=== PATIENT | female | born 1955 | race Caucasian/White ===

== ENCOUNTER 2019-11-17 15:24 | Inpatient (IN) ==
[2019-11-17] MEDS ORDERED: Isovue-370 500 ML BOTTLE IVP ONE (15:45)
[2019-11-17] MEDS ORDERED: methylPREDNISolone 125 MG/2 ML VIAL IVP ONE (15:45)
[2019-11-17] MEDS ORDERED: Ipratropium/Albuterol Neb 3 ML IH ONE (15:45)
[2019-11-17 16:23] LABS: Basophils % 0.5 %; Eosinophils # 0.1 K/mcL (0.0-0.6); Eosinophils % 1.3 %; Hematocrit 41.6 % (35.3-44.9); Hemoglobin 12.5 g/dL (11.5-15.4); Immature Granulocytes % 0.4 % (0-4); Lymphocytes % 11.7 %; Mean Corpuscular Hemoglobin 28.3 pg (28.0-33.3); Mean Corpuscular Volume 94.1 fL (83.0-100.0); Mean Platelet Volume 10.7 fL (9.4-12.4); Monocytes # 0.7 K/mcL (0.0-1.3); Neutrophils # 6.6 K/mcL (1.6-8.9); Platelet Count 183 K/mcL (140-400); Red Blood Count 4.42 M/mcL (3.82-4.97); Red Cell Distribution Width 14.8 % (11.5-14.5); Segmented Neutrophils % 78.1 %; White Blood Count 8.5 K/mcL (4.3-11.1)
[2019-11-17 16:46] LABS: BUN/Creatinine Ratio 19 (6-26); Blood Urea Nitrogen 11 mg/dL (8-23); Carbon Dioxide 40 mEq/L (23-29); Chloride 95 mEq/L (98-107); Glucose 113 mg/dL (70-105); Osmolality,Calculated 296 (280-300); Potassium 4.1 mEq/L (3.5-5.1); Sodium 143 mEq/L (136-145); Troponin I < 0.03 ng/mL (< 0.04); eGFR For African Americans > 60 (> 60); eGFR For Non-African Americans > 60 (> 60)
[2019-11-17 17:26] LABS: VBG HCO3 39 mEq/L (21-27); VBG PCO2 60 mmHg (41-51); VBG PH 7.43 pH Units (7.32-7.42); VBG PO2 204 mmHg (25-50)
[2019-11-17] MEDS ORDERED: Perflutren Lipid Microsphere 1.3 ML in 0.9 % Sodium Chloride 8.7 ML IVP ONE (18:58)
[2019-11-17] MEDS ORDERED: Azithromycin 500 MG in 0.9 % Sodium Chloride 250 ML IVPB SCH (19:00)
[2019-11-17] MEDS: levoFLOXacin 750 MG/150 ML 750 MG/150 ML BAG IVPB SCH (19:38)
[2019-11-17] MEDS: Ipratropium/Albuterol Neb 3 ML IH SCH ×2 (20:33→23:40)
[2019-11-17 21:30] LABS: Adenovirus Not Detected (Not Detect); Bordetella Pertussis Not Detected (Not Detect); Chlamydophila pneumoniae Not Detected (Not Detect); Coronavirus 229E Not Detected (Not Detect); Coronavirus HKU1 Not Detected (Not Detect); Coronavirus NL63 Not Detected (Not Detect); Coronavirus OC43 Not Detected (Not Detect); Human Metapneumovirus Not Detected (Not Detect); Human Rhinovirus/Enterovirus Not Detected (Not Detect); Influenza A Subtype 2009 H1 Not Detected (Not Detect); Influenza B Not Detected (Not Detect); Mycoplasma pneumoniae Not Detected (Not Detect); Parainfluenza Virus 1 Not Detected (Not Detect); Parainfluenza Virus 2 Not Detected (Not Detect); Parainfluenza Virus 3 Not Detected (Not Detect); Parainfluenza Virus 4 Not Detected (Not Detect); Respiratory Syncytial Virus Not Detected (Not Detect)
[2019-11-18] MEDS ORDERED: methylPREDNISolone 125 MG/2 ML VIAL IM SCH
[2019-11-18] MEDS: methylPREDNISolone 125 MG/2 ML VIAL IVP SCH ×5 (00:27→23:57)
[2019-11-18] MEDS ORDERED: Melatonin 3 MG TABLET PO ONE (00:33)
[2019-11-18] MEDS: Ipratropium/Albuterol Neb 3 ML IH SCH ×5 (04:04→20:20)
[2019-11-18 08:08] LABS: Hematocrit 38.3 % (35.3-44.9); Hemoglobin 11.9 g/dL (11.5-15.4); Mean Corpuscular HGB Conc 31.1 g/dL (31.6-35.5); Mean Corpuscular Hemoglobin 28.5 pg (28.0-33.3); Mean Corpuscular Volume 91.8 fL (83.0-100.0); Mean Platelet Volume 10.9 fL (9.4-12.4); Platelet Count 154 K/mcL (140-400); Red Blood Count 4.17 M/mcL (3.82-4.97); White Blood Count 8.2 K/mcL (4.3-11.1)
[2019-11-18 08:17] LABS: VBG HCO3 40 mEq/L (21-27); VBG PCO2 71 mmHg (41-51); VBG PH 7.36 pH Units (7.32-7.42); VBG PO2 155 mmHg (25-50)
[2019-11-18 08:35] LABS: BUN/Creatinine Ratio 23 (6-26); Blood Urea Nitrogen 15 mg/dL (8-23); Calcium 10.1 mg/dL (8.6-10.3); Carbon Dioxide 40 mEq/L (23-29); Chloride 94 mEq/L (98-107); Glucose 208 mg/dL (70-105); Osmolality,Calculated 299 (280-300); Sodium 141 mEq/L (136-145); eGFR For African Americans > 60 (> 60); eGFR For Non-African Americans > 60 (> 60)
[2019-11-18] MEDS: levoFLOXacin 750 MG/150 ML 750 MG/150 ML BAG IVPB SCH (08:45)
[2019-11-18] MEDS: Loratadine 10 MG TABLET PO SCH (08:45)
[2019-11-18] MEDS: Furosemide 20 MG TABLET PO SCH (08:45)
[2019-11-18] MEDS: *HR* Heparin 5,000 UNIT/ML VIAL SQ SCH (17:02)
[2019-11-18] MEDS: Menthol 9.1 MG LOZENGE PO PRN (21:45)
[2019-11-19] MEDS: Ipratropium/Albuterol Neb 3 ML IH SCH ×7 (00:13→23:46)
[2019-11-19 04:04] LABS: Hematocrit 39.2 % (35.3-44.9); Mean Corpuscular HGB Conc 30.6 g/dL (31.6-35.5); Mean Corpuscular Hemoglobin 28.2 pg (28.0-33.3); Mean Corpuscular Volume 92.2 fL (83.0-100.0); Mean Platelet Volume 11.2 fL (9.4-12.4); Platelet Count 186 K/mcL (140-400); Red Blood Count 4.25 M/mcL (3.82-4.97); Red Cell Distribution Width 15.5 % (11.5-14.5); White Blood Count 12.9 K/mcL (4.3-11.1)
[2019-11-19 04:05] LABS: VBG HCO3 38 mEq/L (21-27); VBG PCO2 57 mmHg (41-51); VBG PH 7.44 pH Units (7.32-7.42); VBG PO2 135 mmHg (25-50)
[2019-11-19 04:28] LABS: BUN/Creatinine Ratio 31 (6-26); Blood Urea Nitrogen 23 mg/dL (8-23); Carbon Dioxide 40 mEq/L (23-29); Chloride 96 mEq/L (98-107); Glucose 225 mg/dL (70-105); Osmolality,Calculated 305 (280-300); Potassium 4.2 mEq/L (3.5-5.1); Sodium 142 mEq/L (136-145); eGFR For African Americans > 60 (> 60); eGFR For Non-African Americans > 60 (> 60)
[2019-11-19] MEDS: *HR* Heparin 5,000 UNIT/ML VIAL SQ SCH ×2 (06:05→17:26)
[2019-11-19] MEDS: methylPREDNISolone 125 MG/2 ML VIAL IVP SCH ×4 (06:06→23:39)
[2019-11-19] MEDS: levoFLOXacin 750 MG/150 ML 750 MG/150 ML BAG IVPB SCH (07:46)
[2019-11-19] MEDS: Loratadine 10 MG TABLET PO SCH (07:46)
[2019-11-19] MEDS: Furosemide 20 MG TABLET PO SCH (07:46)
[2019-11-19] MEDS: Budesonide/Formoterol 160/4.5 1 PUFF INH IH SCH ×2 (11:28→19:48)
[2019-11-19] MEDS: Menthol 9.1 MG LOZENGE PO PRN (21:37)
[2019-11-20 02:02] LABS: Hematocrit 39.1 % (35.3-44.9); Hemoglobin 12.1 g/dL (11.5-15.4); Mean Corpuscular HGB Conc 30.9 g/dL (31.6-35.5); Mean Corpuscular Hemoglobin 28.5 pg (28.0-33.3); Mean Corpuscular Volume 92.2 fL (83.0-100.0); Mean Platelet Volume 11.1 fL (9.4-12.4); Platelet Count 186 K/mcL (140-400); Red Blood Count 4.24 M/mcL (3.82-4.97); Red Cell Distribution Width 15.7 % (11.5-14.5); White Blood Count 12.4 K/mcL (4.3-11.1)
[2019-11-20 02:18] LABS: BUN/Creatinine Ratio 30 (6-26); Blood Urea Nitrogen 22 mg/dL (8-23); Calcium 9.8 mg/dL (8.6-10.3); Carbon Dioxide 38 mEq/L (23-29); Chloride 97 mEq/L (98-107); Glucose 213 mg/dL (70-105); Osmolality,Calculated 300 (280-300); Sodium 140 mEq/L (136-145); eGFR For African Americans > 60 (> 60); eGFR For Non-African Americans > 60 (> 60)
[2019-11-20] MEDS: Ipratropium/Albuterol Neb 3 ML IH SCH ×5 (04:03→20:27)
[2019-11-20] MEDS: methylPREDNISolone 125 MG/2 ML VIAL IVP SCH (05:36)
[2019-11-20] MEDS: *HR* Heparin 5,000 UNIT/ML VIAL SQ SCH ×2 (05:36→17:43)
[2019-11-20] MEDS: Tiotropium 18 MCG inhalation IH SCH (07:31)
[2019-11-20] MEDS: Budesonide/Formoterol 160/4.5 1 PUFF INH IH SCH ×2 (07:33→20:27)
[2019-11-20] MEDS: levoFLOXacin 750 MG/150 ML 750 MG/150 ML BAG IVPB SCH (09:07)
[2019-11-20] MEDS: Loratadine 10 MG TABLET PO SCH (09:08)
[2019-11-20 10:44] LABS: ABG Base Excess 11 mEq/L (-2 to 3); ABG HCO3 39 mEq/L (21-27); ABG Oxygen Saturation 92 % (95-98); ABG PCO2 64 mmHg (35-45); ABG PH 7.39 pH Units (7.32-7.45); ABG PO2 67 mmHg (85-104); ABG TCO2 41 mEq/L (20-26)
[2019-11-21] MEDS: Ipratropium/Albuterol Neb 3 ML IH SCH ×6 (00:21→20:05)
[2019-11-21 04:49] LABS: Hematocrit 38.7 % (35.3-44.9); Hemoglobin 11.9 g/dL (11.5-15.4); Mean Corpuscular HGB Conc 30.7 g/dL (31.6-35.5); Mean Corpuscular Hemoglobin 28.6 pg (28.0-33.3); Mean Platelet Volume 11.6 fL (9.4-12.4); Platelet Count 155 K/mcL (140-400); Red Blood Count 4.16 M/mcL (3.82-4.97); Red Cell Distribution Width 15.8 % (11.5-14.5); White Blood Count 10.1 K/mcL (4.3-11.1)
[2019-11-21 05:12] LABS: BUN/Creatinine Ratio 32 (6-26); Blood Urea Nitrogen 23 mg/dL (8-23); Calcium 9.9 mg/dL (8.6-10.3); Carbon Dioxide 36 mEq/L (23-29); Chloride 97 mEq/L (98-107); Glucose 132 mg/dL (70-105); Osmolality,Calculated 296 (280-300); Potassium 3.5 mEq/L (3.5-5.1); Sodium 140 mEq/L (136-145); eGFR For African Americans > 60 (> 60); eGFR For Non-African Americans > 60 (> 60)
[2019-11-21] MEDS: *HR* Heparin 5,000 UNIT/ML VIAL SQ SCH ×2 (06:13→16:34)
[2019-11-21] MEDS: Budesonide/Formoterol 160/4.5 1 PUFF INH IH SCH ×2 (07:33→20:04)
[2019-11-21] MEDS: Tiotropium 18 MCG inhalation IH SCH (07:50)
[2019-11-21] MEDS ORDERED: levoFLOXacin 750 MG TABLET PO SCH (09:00)
[2019-11-21] MEDS: Loratadine 10 MG TABLET PO SCH (09:17)
[2019-11-21] MEDS: predniSONE 20 MG TABLET PO SCH (09:17)
[2019-11-22] MEDS: Ipratropium/Albuterol Neb 3 ML IH SCH ×4 (00:02→11:20)
[2019-11-22] MEDS: *HR* Heparin 5,000 UNIT/ML VIAL SQ SCH (05:40)
[2019-11-22 05:45] LABS: BUN/Creatinine Ratio 32 (6-26); Blood Urea Nitrogen 23 mg/dL (8-23); Calcium 9.5 mg/dL (8.6-10.3); Carbon Dioxide 40 mEq/L (23-29); Chloride 97 mEq/L (98-107); Glucose 112 mg/dL (70-105); Osmolality,Calculated 296 (280-300); Potassium 3.8 mEq/L (3.5-5.1); Sodium 141 mEq/L (136-145); eGFR For African Americans > 60 (> 60); eGFR For Non-African Americans > 60 (> 60)
[2019-11-22 07:30] VITALS: BP 117/74
[2019-11-22] MEDS: Tiotropium 18 MCG inhalation IH SCH (07:43)
[2019-11-22] MEDS: Budesonide/Formoterol 160/4.5 1 PUFF INH IH SCH (07:43)
[2019-11-22] MEDS: Loratadine 10 MG TABLET PO SCH (08:19)
[2019-11-22] MEDS: predniSONE 20 MG TABLET PO SCH (08:19)
== END 2019-11-22 12:41 | disposition home health service (06) | DRG 189 ==
LOC: EMEROOARM 15:24 → 3BNU 15:24
PROVIDERS: ADMIT Internal Medicine; ATTEND Internal Medicine

== ENCOUNTER 2020-12-30 16:31 | Inpatient (IN) ==
[2020-12-30 17:02] LABS: Basophils # 0.1 K/mcL (0.0-0.2); Basophils % 0.6 %; Eosinophils # 0.2 K/mcL (0.0-0.6); Eosinophils % 2.4 %; Hematocrit 41.3 % (35.3-44.9); Hemoglobin 12.1 g/dL (11.5-15.4); Immature Granulocytes % 0.2 % (0-4); Lymphocytes # 1.1 K/mcL (0.6-4.6); Lymphocytes % 13.9 %; Mean Corpuscular HGB Conc 29.3 g/dL (31.6-35.5); Mean Corpuscular Hemoglobin 26.9 pg (28.0-33.3); Mean Corpuscular Volume 91.8 fL (83.0-100.0); Monocytes # 0.9 K/mcL (0.0-1.3); Monocytes % 10.5 %; Neutrophils # 5.9 K/mcL (1.6-8.9); Platelet Count 184 K/mcL (140-400); Red Cell Distribution Width 15.1 % (11.5-14.5); Segmented Neutrophils % 72.4 %; White Blood Count 8.1 K/mcL (4.3-11.1)
[2020-12-30] MEDS ORDERED: Ipratropium/Albuterol Neb 3 ML IH ONE (17:07)
[2020-12-30] MEDS ORDERED: methylPREDNISolone 125 MG/2 ML VIAL IVP ONE (17:08)
[2020-12-30 17:11] LABS: Prothrombin Time 11.3 Seconds (9.4-12.1)
[2020-12-30 17:13] LABS: Activated Partial Thrombo Time 35.4 Seconds (26.0-36.0)
[2020-12-30 17:28] LABS: BUN/Creatinine Ratio 21 (6-26); Blood Urea Nitrogen 12 mg/dL (8-23); Calcium 9.6 mg/dL (8.6-10.3); Carbon Dioxide 40 mEq/L (23-29); Chloride 94 mEq/L (98-107); Glucose 98 mg/dL (70-105); Osmolality,Calculated 286 (280-300); Potassium 3.8 mEq/L (3.5-5.1); Sodium 138 mEq/L (136-145); Troponin I < 0.03 ng/mL (< 0.04); eGFR For African Americans > 60 (> 60); eGFR For Non-African Americans > 60 (> 60)
[2020-12-30 17:42] LABS: VBG HCO3 34 mEq/L (21-27); VBG PCO2 27 mmHg (41-51); VBG PH 7.71 pH Units (7.32-7.42); VBG PO2 192 mmHg (25-50)
[2020-12-30 17:52] LABS: Alanine Aminotransferase 9 Units/L (7-52); Albumin 3.7 g/dL (3.5-5.7); Albumin/Globulin Ratio 1.1 (1.1-2.2); Alkaline Phosphatase 58 Units/L (34-104); Aspartate Amino Transferase 11 Units/L (13-39); Bilirubin,Direct 0.1 mg/dL (0.0-0.2); Bilirubin,Indirect 0.1 mg/dL (0.0-1.0); Bilirubin,Total 0.2 mg/dL (0.3-1.0); Globulin 3.5 g/dL (2.4-3.5); Lipase 11 Units/L (11-82); Total Protein 7.2 g/dL (6.4-8.9)
[2020-12-30 18:49] LABS: ABG Base Excess 11 mEq/L (-2 to 3); ABG HCO3 41 mEq/L (21-27); ABG Oxygen Saturation 80 % (95-98); ABG PCO2 77 mmHg (35-45); ABG PH 7.33 pH Units (7.32-7.45); ABG PO2 50 mmHg (85-104); ABG TCO2 44 mEq/L (20-26)
[2020-12-30] MEDS ORDERED: Ondansetron 4 MG/2 ML VIAL IVP PRN (22:18)
[2020-12-30] MEDS ORDERED: Melatonin 3 MG TABLET PO PRN (22:18)
[2020-12-30] MEDS ORDERED: Acetaminophen 325 MG TABLET PO PRN (22:18)
[2020-12-30] MEDS ORDERED: Naloxone 0.4 MG/ML INJ IVP PRN (22:18)
[2020-12-30] MEDS ORDERED: Albuterol 2.5 MG/3 ML NEBULIZER IH PRN (22:22)
[2020-12-30] MEDS ORDERED: Azithromycin 500 MG in 0.9 % Sodium Chloride 250 ML IVPB SCH (23:00)
[2020-12-30] MEDS: Famotidine 20 MG TABLET PO SCH (23:55)
[2020-12-31] MEDS: Ipratropium/Albuterol Neb 3 ML IH SCH ×4 (00:08→16:41)
[2020-12-31 05:41] LABS: Basophils % 0.1 %; Hematocrit 40.1 % (35.3-44.9); Hemoglobin 11.7 g/dL (11.5-15.4); Immature Granulocytes % 0.4 % (0-4); Lymphocytes # 0.3 K/mcL (0.6-4.6); Lymphocytes % 4.9 %; Mean Corpuscular HGB Conc 29.2 g/dL (31.6-35.5); Mean Corpuscular Hemoglobin 27.1 pg (28.0-33.3); Mean Platelet Volume 11.4 fL (9.4-12.4); Monocytes # 0.1 K/mcL (0.0-1.3); Monocytes % 0.9 %; Neutrophils # 6.2 K/mcL (1.6-8.9); Platelet Count 176 K/mcL (140-400); Red Blood Count 4.31 M/mcL (3.82-4.97); Segmented Neutrophils % 93.7 %; White Blood Count 6.7 K/mcL (4.3-11.1)
[2020-12-31] MEDS: *HR* Heparin 5,000 UNIT/ML VIAL SQ SCH ×2 (06:05→17:40)
[2020-12-31 06:10] LABS: Alanine Aminotransferase 8 Units/L (7-52); Albumin 3.6 g/dL (3.5-5.7); Alkaline Phosphatase 55 Units/L (34-104); Aspartate Amino Transferase 9 Units/L (13-39); BUN/Creatinine Ratio 28 (6-26); Bilirubin,Total 0.2 mg/dL (0.3-1.0); Blood Urea Nitrogen 15 mg/dL (8-23); Calcium 9.5 mg/dL (8.6-10.3); Carbon Dioxide 40 mEq/L (23-29); Chloride 95 mEq/L (98-107); Globulin 3.5 g/dL (2.4-3.5); Glucose 159 mg/dL (70-105); Magnesium 1.9 mg/dL (1.6-2.6); Osmolality,Calculated 290 (280-300); Phosphorous 3.1 mg/dL (2.7-4.5); Potassium 4.3 mEq/L (3.5-5.1); Sodium 138 mEq/L (136-145); Total Protein 7.1 g/dL (6.4-8.9); Troponin I < 0.03 ng/mL (< 0.04); eGFR For African Americans > 60 (> 60); eGFR For Non-African Americans > 60 (> 60)
[2020-12-31 09:12] LABS: VBG HCO3 40 mEq/L (21-27); VBG PCO2 82 mmHg (41-51); VBG PO2 111 mmHg (25-50)
[2020-12-31] MEDS: predniSONE 20 MG TABLET PO SCH (10:18)
[2020-12-31] MEDS: Famotidine 20 MG TABLET PO SCH ×2 (10:18→17:40)
[2020-12-31] MEDS ORDERED: *HR* LORazepam 0.5 MG TABLET PO PRN ×2 (13:45→18:13)
[2020-12-31] MEDS ORDERED: NON-FORMULARY MEDICATION 1 EACH EACH (Fluticasone/Umeclidin/Vilanter [Trelegy Ellipta 100- IH SCH (13:51)
[2020-12-31 17:20] LABS: VBG HCO3 39 mEq/L (21-27); VBG PCO2 64 mmHg (41-51); VBG PH 7.39 pH Units (7.32-7.42); VBG PO2 195 mmHg (25-50)
[2020-12-31] MEDS: ARIPiprazole 5 MG TABLET PO SCH (17:40)
[2020-12-31] MEDS: Furosemide 40 MG TABLET PO SCH (17:40)
[2020-12-31] MEDS: Azithromycin 250 MG TABLET PO SCH (23:23)
[2021-01-01] MEDS: Ipratropium/Albuterol Neb 3 ML IH SCH ×5 (00:05→22:40)
[2021-01-01] MEDS: Budesonide/Formoterol 160/4.5 1 PUFF INH IH SCH ×3 (00:07→22:40)
[2021-01-01 02:33] LABS: Basophils % 0.1 %; Red Blood Count 4.15 M/mcL (3.82-4.97)
[2021-01-01 02:34] LABS: Hematocrit 38.8 % (35.3-44.9); Hemoglobin 11.1 g/dL (11.5-15.4); Immature Granulocytes % 0.4 % (0-4); Lymphocytes # 0.4 K/mcL (0.6-4.6); Lymphocytes % 5.1 %; Mean Corpuscular HGB Conc 28.6 g/dL (31.6-35.5); Mean Corpuscular Hemoglobin 26.7 pg (28.0-33.3); Mean Corpuscular Volume 93.5 fL (83.0-100.0); Mean Platelet Volume 11.6 fL (9.4-12.4); Monocytes # 0.8 K/mcL (0.0-1.3); Neutrophils # 7.1 K/mcL (1.6-8.9); Platelet Count 168 K/mcL (140-400); Red Cell Distribution Width 15.3 % (11.5-14.5); Segmented Neutrophils % 84.4 %; White Blood Count 8.4 K/mcL (4.3-11.1)
[2021-01-01 02:53] LABS: Platelet Estimate Normal (Normal)
[2021-01-01 02:57] LABS: BUN/Creatinine Ratio 35 (6-26); Blood Urea Nitrogen 19 mg/dL (8-23); Calcium 9.4 mg/dL (8.6-10.3); Carbon Dioxide 37 mEq/L (23-29); Chloride 95 mEq/L (98-107); Glucose 162 mg/dL (70-105); Osmolality,Calculated 288 (280-300); Potassium 4.7 mEq/L (3.5-5.1); Sodium 136 mEq/L (136-145); eGFR For African Americans > 60 (> 60); eGFR For Non-African Americans > 60 (> 60)
[2021-01-01] MEDS: Famotidine 20 MG TABLET PO SCH ×2 (06:10→17:22)
[2021-01-01] MEDS: *HR* Heparin 5,000 UNIT/ML VIAL SQ SCH ×2 (06:18→17:22)
[2021-01-01] MEDS: predniSONE 20 MG TABLET PO SCH (08:45)
[2021-01-01] MEDS: ARIPiprazole 5 MG TABLET PO SCH (08:45)
[2021-01-01] MEDS: Furosemide 40 MG TABLET PO SCH (08:45)
[2021-01-01] MEDS ORDERED: Tiotropium 10 INH DOSE IH SCH (10:00)
[2021-01-01] MEDS: Azithromycin 250 MG TABLET PO SCH (21:47)
[2021-01-02] MEDS: Ipratropium/Albuterol Neb 3 ML IH SCH ×3 (04:28→15:41)
[2021-01-02] MEDS: *HR* Heparin 5,000 UNIT/ML VIAL SQ SCH (05:32)
[2021-01-02] MEDS: Famotidine 20 MG TABLET PO SCH (07:53)
[2021-01-02] MEDS: Furosemide 40 MG TABLET PO SCH (07:54)
[2021-01-02] MEDS: predniSONE 20 MG TABLET PO SCH (07:54)
[2021-01-02] MEDS: ARIPiprazole 5 MG TABLET PO SCH (07:54)
[2021-01-02] MEDS: Budesonide/Formoterol 160/4.5 1 PUFF INH IH SCH (11:18)
[2021-01-02 12:27] VITALS: BP 120/77
== END 2021-01-02 16:08 | disposition home health service (06) | DRG 190 ==
LOC: EMEROOARM 16:31 → 2ANU 16:31 → SUATTDRO 19:47 → 2NENU 19:48
PROVIDERS: ADMIT Internal Medicine; ATTEND Internal Medicine

== ENCOUNTER 2022-07-03 14:42 | Inpatient (IN) ==
[2022-07-03] MEDS ORDERED: Iopamidol - 370 500 ML MLS IVP ONE ×3 (15:02→17:06)
[2022-07-03 15:37] LABS: Basophils # 0.1 K/mcL (0.0-0.2); Basophils % 0.7 %; Eosinophils # 0.1 K/mcL (0.0-0.6); Eosinophils % 0.9 %; Hematocrit 42.3 % (35.3-44.9); Hemoglobin 12.3 g/dL (11.5-15.4); Lymphocytes # 0.7 K/mcL (0.6-4.6); Lymphocytes % 5.3 %; Mean Corpuscular HGB Conc 29.1 g/dL (31.6-35.5); Mean Corpuscular Hemoglobin 28.5 pg (28.0-33.3); Mean Corpuscular Volume 98.1 fL (83.0-100.0); Mean Platelet Volume 10.2 fL (9.4-12.4); Monocytes # 1.1 K/mcL (0.0-1.3); Monocytes % 8.1 %; Platelet Count 201 K/mcL (140-400); Red Blood Count 4.31 M/mcL (3.82-4.97); Red Cell Distribution Width 13.9 % (11.5-14.5); White Blood Count 13.1 K/mcL (4.3-11.1)
[2022-07-03] MEDS ORDERED: methylPREDNISolone 125 MG/2 ML VIAL ONE (15:46)
[2022-07-03 15:49] LABS: VBG HCO3 42 mEq/L (21-27); VBG PCO2 91 mmHg (41-51); VBG PH 7.28 pH Units (7.32-7.42); VBG PO2 71 mmHg (25-50)
[2022-07-03] MEDS ORDERED: Ipratropium/Albuterol Neb 3 ML IH ONE ×3 (15:49→16:43)
[2022-07-03] MEDS ORDERED: methylPREDNISolone 125 MG/2 ML VIAL IVP ONE (15:49)
[2022-07-03] MEDS ORDERED: Ipratropium/Albuterol Neb 3 ML ONE (15:50)
[2022-07-03] MEDS ORDERED: Cefepime HCl 2,000 MG in 0.9 % Sodium Chloride 10 ML IVP ONE (16:00)
[2022-07-03] MEDS ORDERED: Doxycycline 100 MG in 0.9 % Sodium Chloride Mini Bag 100 ML IVPB ONE (16:03)
[2022-07-03] MEDS ORDERED: 0.9 % Sodium Chloride 1,000 ML ONE (16:16)
[2022-07-03 16:24] LABS: Influenza A PCR Negative (Negative); Influenza B PCR Negative (Negative); Resp. Syncytial Virus PCR Negative (Negative); SARS-CoV-2 by PCR (In House) Negative (Negative)
[2022-07-03] MEDS: FentaNYL (PF) 1,000 MCG/100 ML IV.SOLN IVC SCH (16:35)
[2022-07-03 16:41] LABS: ABG Base Excess 16 mEq/L (-2 to 3); ABG HCO3 51 mEq/L (21-27); ABG Oxygen Saturation 99 % (95-98); ABG PCO2 123 mmHg (35-45); ABG PH 7.22 pH Units (7.32-7.45); ABG PO2 176 mmHg (85-104); ABG TCO2 > 50 mEq/L (20-26); Blood Gas Modality NIV; Blood Gas VT 450 cc
[2022-07-03 16:53] LABS: Alanine Aminotransferase 8 Units/L (7-52); Albumin 3.5 g/dL (3.5-5.7); Albumin/Globulin Ratio 0.9 (1.1-2.2); Alkaline Phosphatase 64 Units/L (34-104); Aspartate Amino Transferase 11 Units/L (13-39); BUN/Creatinine Ratio 30 (6-26); Bilirubin,Indirect 0.3 mg/dL (0.0-1.0); Bilirubin,Total 0.3 mg/dL (0.3-1.0); Blood Urea Nitrogen 16 mg/dL (8-23); Carbon Dioxide > 45 mEq/L (23-29); Chloride 93 mEq/L (98-107); Ethanol < 10 mg/dL (Less than 10); Globulin 3.8 g/dL (2.4-3.5); Glucose 108 mg/dL (70-105); Lipase 12 Units/L (11-82); Osmolality,Calculated 296 (280-300); Potassium 4.1 mEq/L (3.5-5.1); Sodium 142 mEq/L (136-145); Thyroid Stimulating Hormone 3.064 mcIU/mL (0.340-5.600); Total Protein 7.3 g/dL (6.4-8.9); Troponin I < 0.03 ng/mL (< 0.04)
[2022-07-03 17:03] LABS: ABG Base Excess 13 mEq/L (-2 to 3); ABG HCO3 45 mEq/L (21-27); ABG Oxygen Saturation 98 % (95-98); ABG PCO2 99 mmHg (35-45); ABG PH 7.26 pH Units (7.32-7.45); ABG PO2 132 mmHg (85-104); ABG TCO2 48 mEq/L (20-26); Blood Gas VT 450 cc
[2022-07-03 19:18] LABS: ABG Base Excess 17 mEq/L (-2 to 3); ABG HCO3 45 mEq/L (21-27); ABG Oxygen Saturation 94 % (95-98); ABG PCO2 67 mmHg (35-45); ABG PH 7.44 pH Units (7.32-7.45); ABG PO2 71 mmHg (85-104); ABG TCO2 47 mEq/L (20-26); Blood Gas Modality ASSIST CONTROL; Blood Gas VT 500 cc
[2022-07-03 19:53] LABS: Bilirubin,Urine Negative (Negative); Blood,Urine Small (Negative); Clarity,Urine Clear (Clear); Color,Urine Yellow (Yellow); Glucose,Urine (UA) 30 mg/dL (Normal); Ketones,Urine Negative (Negative); Leukocyte Esterase,Urine Moderate (Negative); Mucus,Urine Many per lpf (None-Few); Nitrite,Urine Negative (Negative); PH,Urine 6.5 pH Units (5.0-8.0); Protein,Urine 100 mg/dL (Neg-Trace); RBC,Urine 15-30 per hpf (0-3); Specific Gravity,Urine > 1.030 (1.010-1.025); Squamous Epithelial Cell,Urine Few per hpf (None-Few); Urobilinogen,Urine Normal (Normal); WBC,Urine 30-50 per hpf (0-3)
[2022-07-03 19:54] LABS: Amphetamine Screen,Urine Negative ng/mL (Cutoff=1000); Barbiturate Screen,Urine Negative ng/mL (Cutoff=200); Benzodiazepines Screen,Urine Negative ng/mL (Cutoff=200); Cannabinoid Screen,Urine Negative ng/mL (Cutoff = 50); Cocaine Screen,Urine Negative ng/mL (Cutoff= 300); Opiate Screen,Urine Negative ng/mL (Cutoff=300); Phencyclidine Screen,Urine Negative ng/mL (Cutoff=25)
[2022-07-03] MEDS ORDERED: Naloxone 0.4 MG/ML INJ IVP PRN (19:59)
[2022-07-03] MEDS ORDERED: Artificial Tears SOLN 15 ML BOTTLE BOTH EYES PRN (20:01)
[2022-07-03] MEDS ORDERED: Vancomycin 2,000 MG/520 ML IV.SOLN IVPB ONE (23:00)
[2022-07-03] MEDS: Ipratropium/Albuterol Neb 3 ML IH SCH (23:55)
[2022-07-04] MEDS: Chlorhexidine Rinse 15 ML MOUTHWASH MM SCH ×3 (00:40→19:47)
[2022-07-04] MEDS: Cefepime HCl 1,000 MG in 0.9 % Sodium Chloride 10 ML IVP SCH ×2 (00:47→08:23)
[2022-07-04] MEDS: Artificial Tears SOLN 15 ML BOTTLE BOTH EYES SCH ×6 (00:49→19:48)
[2022-07-04] MEDS: methylPREDNISolone 125 MG/2 ML VIAL IVP SCH ×2 (01:00→08:23)
[2022-07-04] MEDS: Ipratropium/Albuterol Neb 3 ML IH SCH ×4 (04:27→19:53)
[2022-07-04 04:47] LABS: ABG Base Excess 13 mEq/L (-2 to 3); ABG HCO3 37 mEq/L (21-27); ABG Oxygen Saturation 92 % (95-98); ABG PCO2 43 mmHg (35-45); ABG PH 7.54 pH Units (7.32-7.45); ABG PO2 57 mmHg (85-104); ABG TCO2 38 mEq/L (20-26); Blood Gas Modality ASSIST CONTROL; Blood Gas VT 500 cc
[2022-07-04] MEDS: *HR* Enoxaparin 40 MG/0.4 ML SYRINGE SQ SCH (05:42)
[2022-07-04 05:46] LABS: Basophils % 0.2 %; Hematocrit 40.1 % (35.3-44.9); Hemoglobin 11.9 g/dL (11.5-15.4); Immature Granulocytes % 0.9 % (0-4); Lymphocytes # 0.7 K/mcL (0.6-4.6); Lymphocytes % 6.4 %; Mean Corpuscular HGB Conc 29.7 g/dL (31.6-35.5); Mean Corpuscular Hemoglobin 28.3 pg (28.0-33.3); Mean Corpuscular Volume 95.5 fL (83.0-100.0); Mean Platelet Volume 10.8 fL (9.4-12.4); Monocytes # 0.4 K/mcL (0.0-1.3); Monocytes % 3.1 %; Neutrophils # 10.1 K/mcL (1.6-8.9); Platelet Count 212 K/mcL (140-400); Red Cell Distribution Width 13.9 % (11.5-14.5); Segmented Neutrophils % 89.4 %; White Blood Count 11.3 K/mcL (4.3-11.1)
[2022-07-04 06:05] LABS: Alanine Aminotransferase 7 Units/L (7-52); Albumin 3.5 g/dL (3.5-5.7); Alkaline Phosphatase 64 Units/L (34-104); Aspartate Amino Transferase 11 Units/L (13-39); BUN/Creatinine Ratio 26 (6-26); Bilirubin,Total 0.4 mg/dL (0.3-1.0); Blood Urea Nitrogen 18 mg/dL (8-23); Calcium 9.5 mg/dL (8.6-10.3); Carbon Dioxide 38 mEq/L (23-29); Chloride 95 mEq/L (98-107); Globulin 3.4 g/dL (2.4-3.5); Glucose 176 mg/dL (70-105); Magnesium 1.8 mg/dL (1.6-2.6); Osmolality,Calculated 296 (280-300); Potassium 3.6 mEq/L (3.5-5.1); Sodium 140 mEq/L (136-145); Total Protein 6.9 g/dL (6.4-8.9)
[2022-07-04] MEDS: Ringers Solution, Lactated 1,000 ML IVC SCH ×2 (08:40→16:54)
[2022-07-04] MEDS ORDERED: *HR* Etomidate 20 MG/10 ML AMPUL IVP ONE (09:00)
[2022-07-04] MEDS ORDERED: *HR* Rocuronium Bromide 50 MG/5 ML VIAL IVP ONE (09:00)
[2022-07-04 09:58] LABS: ABG Base Excess 12 mEq/L (-2 to 3); ABG HCO3 38 mEq/L (21-27); ABG Oxygen Saturation 94 % (95-98); ABG PCO2 57 mmHg (35-45); ABG PH 7.43 pH Units (7.32-7.45); ABG PO2 71 mmHg (85-104); ABG TCO2 40 mEq/L (20-26); Blood Gas Modality ASSIST CONTROL; Blood Gas VT 500 cc
[2022-07-04 10:02] LABS: A.calcoaceticus-baumannii cplx Not Detected (Not Detect); Bacteroides fragilis by PCR Not Detected (Not Detect); Candida albicans by PCR Not Detected (Not Detect); Candida auris by PCR Not Detected (Not Detect); Candida glabrata by PCR Not Detected (Not Detect); Candida krusei by PCR Not Detected (Not Detect); Candida parapsilosis by PCR Not Detected (Not Detect); Candida tropicalis by PCR Not Detected (Not Detect); Crypto. neoformans/gattii PCR Not Detected (Not Detect); Enterobacter cloacae Cmplx PCR Not Detected (Not Detect); Enterobacterales by PCR Not Detected (Not Detect); Enterococcus faecalis by PCR Not Detected (Not Detect); Enterococcus faecium by PCR DETECTED (Not Detect); Escherichia coli by PCR Not Detected (Not Detect); Klebs. pneumoniae group by PCR Not Detected (Not Detect); Klebsiella aerogenes by PCR Not Detected (Not Detect); Klebsiella oxytoca by PCR Not Detected (Not Detect); Proteus by PCR Not Detected (Not Detect); Pseudomonas aeruginosa by PCR Not Detected (Not Detect); Salmonella species by PCR Not Detected (Not Detect); Serratia marcescens by PCR Not Detected (Not Detect); Staph epidermidis by PCR Not Detected (Not Detect); Staph lugdunensis by PCR Not Detected (Not Detect); Staphylococcus aureus by PCR Not Detected (Not Detect); Staphylococcus by PCR Not Detected (Not Detect); Stenotrophomonas maltophilia Not Detected (Not Detect); Streptococcus agalactiae(B)PCR Not Detected (Not Detect); Streptococcus by PCR Not Detected (Not Detect); Streptococcus pneumoniae PCR Not Detected (Not Detect); Streptococcus pyogenes (A) PCR Not Detected (Not Detect); vanA/B Vancomycin-Resist Genes DETECTED (Not Detect)
[2022-07-04] MEDS ORDERED: Vancomycin 1,250 MG/262.5 ML IV.SOLN IVPB SCH (11:00)
[2022-07-04] MEDS ORDERED: DAPTOmycin 500 MG in 0.9 % Sodium Chloride 100 ML IVPB SCH (11:00)
[2022-07-04] MEDS: FentaNYL (PF) 1,000 MCG/100 ML IV.SOLN IVC SCH ×2 (11:05→18:50)
[2022-07-04] MEDS: DAPTOMYCIN IVPB SCH (11:36)
[2022-07-04] MEDS: SODIUM CHLORIDE 0.9% IVPB SCH (11:36)
[2022-07-04] MEDS: Pantoprazole 40 MG VIAL IVP SCH (11:36)
[2022-07-04] MEDS: MethylPREDNISolone 40 MG/ML VIAL IVP SCH (16:52)
[2022-07-04] MEDS: Ceftaroline Fosamil Acetate 600 MG in 0.9 % Sodium Chloride 50 ML IVPB SCH (16:53)
[2022-07-05] MEDS: Ceftaroline Fosamil Acetate 600 MG in 0.9 % Sodium Chloride 50 ML IVPB SCH ×4 (00:30→23:12)
[2022-07-05] MEDS: Artificial Tears SOLN 15 ML BOTTLE BOTH EYES SCH ×7 (01:39→23:12)
[2022-07-05] MEDS: MethylPREDNISolone 40 MG/ML VIAL IVP SCH ×4 (01:39→23:12)
[2022-07-05] MEDS: Ringers Solution, Lactated 1,000 ML IVC SCH ×2 (01:40→07:40)
[2022-07-05] MEDS: Ipratropium/Albuterol Neb 3 ML IH SCH ×4 (03:41→21:35)
[2022-07-05 05:07] LABS: ABG Base Excess 9 mEq/L (-2 to 3); ABG HCO3 34 mEq/L (21-27); ABG Oxygen Saturation 95 % (95-98); ABG PCO2 48 mmHg (35-45); ABG PH 7.46 pH Units (7.32-7.45); ABG PO2 70 mmHg (85-104); ABG TCO2 36 mEq/L (20-26); Blood Gas VT 500 cc
[2022-07-05 05:18] LABS: Basophils % 0.1 %; Hematocrit 33.7 % (35.3-44.9); Hemoglobin 10.3 g/dL (11.5-15.4); Immature Granulocytes % 0.6 % (0-4); Lymphocytes # 0.4 K/mcL (0.6-4.6); Lymphocytes % 2.1 %; Mean Corpuscular HGB Conc 30.6 g/dL (31.6-35.5); Mean Corpuscular Hemoglobin 27.8 pg (28.0-33.3); Mean Corpuscular Volume 91.1 fL (83.0-100.0); Mean Platelet Volume 10.9 fL (9.4-12.4); Monocytes % 5.7 %; Neutrophils # 15.7 K/mcL (1.6-8.9); Platelet Count 227 K/mcL (140-400); Red Cell Distribution Width 14.9 % (11.5-14.5); Segmented Neutrophils % 91.5 %; White Blood Count 17.1 K/mcL (4.3-11.1)
[2022-07-05 05:25] LABS: INR 1.1; Prothrombin Time 12.6 Seconds (9.4-12.1)
[2022-07-05 05:43] LABS: Alanine Aminotransferase 6 Units/L (7-52); Albumin 2.9 g/dL (3.5-5.7); Alkaline Phosphatase 51 Units/L (34-104); Aspartate Amino Transferase 6 Units/L (13-39); BUN/Creatinine Ratio 35 (6-26); Bilirubin,Total 0.3 mg/dL (0.3-1.0); Blood Urea Nitrogen 19 mg/dL (8-23); Calcium 9.1 mg/dL (8.6-10.3); Carbon Dioxide 40 mEq/L (23-29); Chloride 96 mEq/L (98-107); Globulin 2.9 g/dL (2.4-3.5); Glucose 128 mg/dL (70-105); Magnesium 1.8 mg/dL (1.6-2.6); Osmolality,Calculated 294 (280-300); Phosphorous 2.1 mg/dL (2.7-4.5); Potassium 3.2 mEq/L (3.5-5.1); Sodium 140 mEq/L (136-145); Total Protein 5.8 g/dL (6.4-8.9)
[2022-07-05 05:48] LABS: Estimated Average Glucose 120 mg/dl; Hemoglobin A1C 5.8 %
[2022-07-05] MEDS ORDERED: Potassium Chloride Elixir 20 MEQ/15 ML UDC GTUBE ONE (05:58)
[2022-07-05] MEDS: *HR* Enoxaparin 40 MG/0.4 ML SYRINGE SQ SCH (06:05)
[2022-07-05] MEDS: FentaNYL (PF) 1,000 MCG/100 ML IV.SOLN IVC SCH ×2 (06:10→14:46)
[2022-07-05 06:22] LABS: Cholesterol 130 mg/dL (< 200); HDL Cholesterol 44 mg/dL (40-59); LDL Cholesterol,Calculated 32 mg/dL (< 100); Triglycerides 270 mg/dL (< 150)
[2022-07-05] MEDS: Chlorhexidine Rinse 15 ML MOUTHWASH MM SCH ×2 (07:40→20:21)
[2022-07-05] MEDS: Pantoprazole 40 MG VIAL IVP SCH (07:40)
[2022-07-05] MEDS ORDERED: Calcium Gluconate 1gm/50mL 1 GM/50 ML BAG IVPB PRN (08:47)
[2022-07-05] MEDS: SODIUM CHLORIDE 0.9% IVPB SCH (10:34)
[2022-07-05] MEDS: DAPTOMYCIN IVPB SCH (10:34)
[2022-07-05] MEDS: Norepinephrine 4 MG/254 ML IV.SOLN IVC SCH ×2 (12:08→23:12)
[2022-07-05 13:52] LABS: Magnesium 2.5 mg/dL (1.6-2.6); Troponin I < 0.03 ng/mL (< 0.04)
[2022-07-05 14:36] LABS: Potassium 3.5 mEq/L (3.5-5.1)
[2022-07-05] MEDS: Albumin 25% 25gram/100mL 25 GM/100 ML IV.SOLN IVC SCH ×2 (17:32→18:33)
[2022-07-05] MEDS: Potassium Phosphate 44 MEQ in 0.9 % Sodium Chloride 250 ML IVPB PRN (23:23)
[2022-07-06] MEDS: FentaNYL (PF) 1,000 MCG/100 ML IV.SOLN IVC SCH ×3 (00:52→17:17)
[2022-07-06] MEDS: Artificial Tears SOLN 15 ML BOTTLE BOTH EYES SCH ×5 (03:04→22:43)
[2022-07-06] MEDS: Ipratropium/Albuterol Neb 3 ML IH SCH ×4 (04:07→21:38)
[2022-07-06 04:18] LABS: VBG Ionized Calcium 1.09 mmol/L (1.15-1.35)
[2022-07-06 04:19] LABS: Basophils % 0.1 %; Hematocrit 32.3 % (35.3-44.9); Hemoglobin 10.1 g/dL (11.5-15.4); Immature Granulocytes % 0.5 % (0-4); Lymphocytes # 0.3 K/mcL (0.6-4.6); Lymphocytes % 2.1 %; Mean Corpuscular HGB Conc 31.3 g/dL (31.6-35.5); Mean Corpuscular Hemoglobin 28.4 pg (28.0-33.3); Mean Corpuscular Volume 90.7 fL (83.0-100.0); Mean Platelet Volume 10.9 fL (9.4-12.4); Monocytes # 0.5 K/mcL (0.0-1.3); Neutrophils # 12.3 K/mcL (1.6-8.9); Platelet Count 223 K/mcL (140-400); Red Blood Count 3.56 M/mcL (3.82-4.97); Red Cell Distribution Width 15.4 % (11.5-14.5); Segmented Neutrophils % 93.3 %; White Blood Count 13.1 K/mcL (4.3-11.1)
[2022-07-06 04:35] LABS: BUN/Creatinine Ratio 32 (6-26); Blood Urea Nitrogen 17 mg/dL (8-23); Calcium 9.3 mg/dL (8.6-10.3); Carbon Dioxide 32 mEq/L (23-29); Chloride 99 mEq/L (98-107); Glucose 130 mg/dL (70-105); Osmolality,Calculated 291 (280-300); Potassium 4.5 mEq/L (3.5-5.1); Sodium 139 mEq/L (136-145)
[2022-07-06 05:05] LABS: ABG Base Excess 8 mEq/L (-2 to 3); ABG HCO3 33 mEq/L (21-27); ABG Oxygen Saturation 96 % (95-98); ABG PCO2 47 mmHg (35-45); ABG PH 7.46 pH Units (7.32-7.45); ABG PO2 79 mmHg (85-104); ABG TCO2 35 mEq/L (20-26); Blood Gas Modality ASSIST CONTROL; Blood Gas VT 500 cc
[2022-07-06] MEDS: *HR* Enoxaparin 40 MG/0.4 ML SYRINGE SQ SCH (05:08)
[2022-07-06] MEDS: Pantoprazole 40 MG VIAL IVP SCH (07:49)
[2022-07-06] MEDS: Chlorhexidine Rinse 15 ML MOUTHWASH MM SCH ×2 (07:49→22:44)
[2022-07-06] MEDS: MethylPREDNISolone 40 MG/ML VIAL IVP SCH ×2 (07:49→15:41)
[2022-07-06] MEDS ORDERED: Calcium Gluconate 1gm/50mL 1 GM/50 ML BAG IVPB PRN (08:01)
[2022-07-06] MEDS: Dexmedetomidine HCl 400 MCG/100 ML MLS IVC SCH (08:22)
[2022-07-06] MEDS: Ceftaroline Fosamil Acetate 600 MG in 0.9 % Sodium Chloride 50 ML IVPB SCH ×2 (08:22→15:41)
[2022-07-06] MEDS: DAPTOMYCIN IVPB SCH (10:54)
[2022-07-06] MEDS: SODIUM CHLORIDE 0.9% IVPB SCH (10:54)
[2022-07-06 11:04] LABS: VBG Ionized Calcium 1.07 mmol/L (1.15-1.35)
[2022-07-06] MEDS: Norepinephrine 4 MG/254 ML IV.SOLN IVC SCH (16:48)
[2022-07-06 18:18] LABS: Basophils % 0.1 %; Hematocrit 32.9 % (35.3-44.9); Hemoglobin 10.4 g/dL (11.5-15.4); Immature Granulocytes % 0.8 % (0-4); Lymphocytes # 0.3 K/mcL (0.6-4.6); Lymphocytes % 2.2 %; Mean Corpuscular HGB Conc 31.6 g/dL (31.6-35.5); Mean Corpuscular Hemoglobin 28.1 pg (28.0-33.3); Mean Corpuscular Volume 88.9 fL (83.0-100.0); Monocytes # 0.6 K/mcL (0.0-1.3); Monocytes % 4.9 %; Neutrophils # 11.4 K/mcL (1.6-8.9); Platelet Count 225 K/mcL (140-400); Red Cell Distribution Width 15.4 % (11.5-14.5); White Blood Count 12.4 K/mcL (4.3-11.1)
[2022-07-06 18:38] LABS: BUN/Creatinine Ratio 30 (6-26); Blood Urea Nitrogen 17 mg/dL (8-23); Calcium 9.1 mg/dL (8.6-10.3); Carbon Dioxide 33 mEq/L (23-29); Chloride 99 mEq/L (98-107); Glucose 149 mg/dL (70-105); Osmolality,Calculated 294 (280-300); Potassium 3.9 mEq/L (3.5-5.1); Sodium 140 mEq/L (136-145)
[2022-07-07] MEDS: Artificial Tears SOLN 15 ML BOTTLE BOTH EYES SCH ×6 (00:11→20:27)
[2022-07-07] MEDS: Ceftaroline Fosamil Acetate 600 MG in 0.9 % Sodium Chloride 50 ML IVPB SCH ×3 (00:11→15:44)
[2022-07-07] MEDS: MethylPREDNISolone 40 MG/ML VIAL IVP SCH ×3 (00:12→15:44)
[2022-07-07] MEDS: FentaNYL (PF) 1,000 MCG/100 ML IV.SOLN IVC SCH (03:17)
[2022-07-07] MEDS: Ipratropium/Albuterol Neb 3 ML IH SCH ×4 (03:22→20:07)
[2022-07-07 04:06] LABS: Basophils % 0.1 %; Hemoglobin 10.9 g/dL (11.5-15.4); Immature Granulocytes % 0.9 % (0-4); Lymphocytes # 0.4 K/mcL (0.6-4.6); Lymphocytes % 3.5 %; Mean Corpuscular HGB Conc 32.1 g/dL (31.6-35.5); Mean Corpuscular Hemoglobin 28.5 pg (28.0-33.3); Mean Corpuscular Volume 88.8 fL (83.0-100.0); Mean Platelet Volume 10.9 fL (9.4-12.4); Monocytes # 0.5 K/mcL (0.0-1.3); Monocytes % 4.5 %; Neutrophils # 9.9 K/mcL (1.6-8.9); Platelet Count 224 K/mcL (140-400); Red Blood Count 3.83 M/mcL (3.82-4.97); Red Cell Distribution Width 15.6 % (11.5-14.5); White Blood Count 10.8 K/mcL (4.3-11.1)
[2022-07-07 04:11] LABS: VBG Ionized Calcium 1.13 mmol/L (1.15-1.35)
[2022-07-07 04:25] LABS: Phosphorous 3.2 mg/dL (2.7-4.5)
[2022-07-07] MEDS: Dexmedetomidine HCl 400 MCG/100 ML MLS IVC SCH ×2 (05:49→16:28)
[2022-07-07] MEDS: Norepinephrine 4 MG/254 ML IV.SOLN IVC SCH ×2 (05:49→15:44)
[2022-07-07] MEDS: *HR* Enoxaparin 40 MG/0.4 ML SYRINGE SQ SCH (06:24)
[2022-07-07 07:08] LABS: BUN/Creatinine Ratio 29 (6-26); Blood Urea Nitrogen 17 mg/dL (8-23); Calcium 9.1 mg/dL (8.6-10.3); Carbon Dioxide 32 mEq/L (23-29); Chloride 100 mEq/L (98-107); Glucose 136 mg/dL (70-105); Magnesium 2.2 mg/dL (1.6-2.6); Osmolality,Calculated 292 (280-300); Potassium 3.9 mEq/L (3.5-5.1); Sodium 139 mEq/L (136-145)
[2022-07-07] MEDS: Chlorhexidine Rinse 15 ML MOUTHWASH MM SCH ×2 (07:41→20:27)
[2022-07-07] MEDS: Pantoprazole 40 MG VIAL IVP SCH (07:42)
[2022-07-07 08:00] LABS: ABG Base Excess 9 mEq/L (-2 to 3); ABG HCO3 34 mEq/L (21-27); ABG Oxygen Saturation 96 % (95-98); ABG PCO2 52 mmHg (35-45); ABG PH 7.43 pH Units (7.32-7.45); ABG PO2 83 mmHg (85-104); ABG TCO2 36 mEq/L (20-26); Blood Gas Modality ASSIST CONTROL; Blood Gas VT 500 cc
[2022-07-07] MEDS: SODIUM CHLORIDE 0.9% IVPB SCH (10:34)
[2022-07-07] MEDS: DAPTOMYCIN IVPB SCH (10:34)
[2022-07-07 11:57] LABS: ABG Base Excess 8 mEq/L (-2 to 3); ABG HCO3 36 mEq/L (21-27); ABG Oxygen Saturation 94 % (95-98); ABG PCO2 67 mmHg (35-45); ABG PH 7.34 pH Units (7.32-7.45); ABG PO2 81 mmHg (85-104); ABG TCO2 38 mEq/L (20-26); Blood Gas Modality ASSIST CONTROL; Blood Gas Pressure Support 8 cm H2O
[2022-07-07] MEDS: Cefepime HCl 1,000 MG in 0.9 % Sodium Chloride 10 ML IVP SCH (19:40)
[2022-07-08] MEDS: Artificial Tears SOLN 15 ML BOTTLE BOTH EYES SCH ×7 (00:11→23:32)
[2022-07-08] MEDS: MethylPREDNISolone 40 MG/ML VIAL IVP SCH ×4 (00:11→23:32)
[2022-07-08] MEDS: Ceftaroline Fosamil Acetate 600 MG in 0.9 % Sodium Chloride 50 ML IVPB SCH ×4 (00:12→23:32)
[2022-07-08] MEDS: Norepinephrine 4 MG/254 ML IV.SOLN IVC SCH ×2 (03:10→17:36)
[2022-07-08 03:13] LABS: VBG Ionized Calcium 1.18 mmol/L (1.15-1.35)
[2022-07-08] MEDS: Dexmedetomidine HCl 400 MCG/100 ML MLS IVC SCH (03:22)
[2022-07-08 03:23] LABS: Basophils % 0.1 %; Hematocrit 35.8 % (35.3-44.9); Hemoglobin 10.8 g/dL (11.5-15.4); Lymphocytes # 0.3 K/mcL (0.6-4.6); Lymphocytes % 2.8 %; Mean Corpuscular HGB Conc 30.2 g/dL (31.6-35.5); Mean Corpuscular Hemoglobin 28.5 pg (28.0-33.3); Mean Corpuscular Volume 94.5 fL (83.0-100.0); Mean Platelet Volume 11.5 fL (9.4-12.4); Monocytes # 0.5 K/mcL (0.0-1.3); Monocytes % 4.7 %; Neutrophils # 10.5 K/mcL (1.6-8.9); Platelet Count 219 K/mcL (140-400); Red Blood Count 3.79 M/mcL (3.82-4.97); Red Cell Distribution Width 15.9 % (11.5-14.5); Segmented Neutrophils % 91.4 %; White Blood Count 11.5 K/mcL (4.3-11.1)
[2022-07-08 03:29] LABS: Magnesium 2.2 mg/dL (1.6-2.6)
[2022-07-08] MEDS: Ipratropium/Albuterol Neb 3 ML IH SCH ×4 (03:36→23:12)
[2022-07-08 04:39] LABS: BUN/Creatinine Ratio 30 (6-26); Blood Urea Nitrogen 20 mg/dL (8-23); Calcium 8.9 mg/dL (8.6-10.3); Carbon Dioxide 34 mEq/L (23-29); Chloride 101 mEq/L (98-107); Glucose 150 mg/dL (70-105); Osmolality,Calculated 293 (280-300); Potassium 4.5 mEq/L (3.5-5.1); Sodium 139 mEq/L (136-145)
[2022-07-08] MEDS: *HR* Enoxaparin 40 MG/0.4 ML SYRINGE SQ SCH (05:15)
[2022-07-08] MEDS: Pantoprazole 40 MG VIAL IVP SCH (08:22)
[2022-07-08] MEDS: Chlorhexidine Rinse 15 ML MOUTHWASH MM SCH ×2 (08:22→19:50)
[2022-07-08] MEDS: SODIUM CHLORIDE 0.9% IVPB SCH (11:16)
[2022-07-08] MEDS: DAPTOMYCIN IVPB SCH (11:16)
[2022-07-09] MEDS: Artificial Tears SOLN 15 ML BOTTLE BOTH EYES SCH ×5 (03:31→20:09)
[2022-07-09] MEDS: Ipratropium/Albuterol Neb 3 ML IH SCH ×4 (03:53→22:51)
[2022-07-09 04:40] LABS: VBG Ionized Calcium 1.17 mmol/L (1.15-1.35)
[2022-07-09 04:41] LABS: Basophils % 0.2 %; Hematocrit 35.9 % (35.3-44.9); Hemoglobin 10.9 g/dL (11.5-15.4); Immature Granulocytes % 1.3 % (0-4); Lymphocytes # 0.4 K/mcL (0.6-4.6); Lymphocytes % 2.8 %; Mean Corpuscular HGB Conc 30.4 g/dL (31.6-35.5); Mean Corpuscular Hemoglobin 28.5 pg (28.0-33.3); Mean Platelet Volume 11.5 fL (9.4-12.4); Monocytes # 0.5 K/mcL (0.0-1.3); Neutrophils # 11.9 K/mcL (1.6-8.9); Platelet Count 219 K/mcL (140-400); Red Blood Count 3.82 M/mcL (3.82-4.97); Red Cell Distribution Width 15.3 % (11.5-14.5); Segmented Neutrophils % 91.7 %
[2022-07-09] MEDS: Norepinephrine 4 MG/254 ML IV.SOLN IVC SCH ×2 (04:56→20:09)
[2022-07-09] MEDS: Dexmedetomidine HCl 400 MCG/100 ML MLS IVC SCH ×2 (04:57→14:30)
[2022-07-09 04:58] LABS: Alanine Aminotransferase 17 Units/L (7-52); Albumin 3.4 g/dL (3.5-5.7); Albumin/Globulin Ratio 1.4 (1.1-2.2); Alkaline Phosphatase 44 Units/L (34-104); Aspartate Amino Transferase 13 Units/L (13-39); BUN/Creatinine Ratio 33 (6-26); Bilirubin,Total 0.3 mg/dL (0.3-1.0); Blood Urea Nitrogen 21 mg/dL (8-23); Calcium 8.6 mg/dL (8.6-10.3); Carbon Dioxide 36 mEq/L (23-29); Chloride 101 mEq/L (98-107); Globulin 2.4 g/dL (2.4-3.5); Glucose 120 mg/dL (70-105); Magnesium 2.2 mg/dL (1.6-2.6); Osmolality,Calculated 292 (280-300); Phosphorous 3.2 mg/dL (2.7-4.5); Potassium 4.5 mEq/L (3.5-5.1); Sodium 139 mEq/L (136-145); Total Protein 5.8 g/dL (6.4-8.9)
[2022-07-09] MEDS: *HR* Enoxaparin 40 MG/0.4 ML SYRINGE SQ SCH (06:11)
[2022-07-09] MEDS: Pantoprazole 40 MG VIAL IVP SCH (08:39)
[2022-07-09] MEDS: Ceftaroline Fosamil Acetate 600 MG in 0.9 % Sodium Chloride 50 ML IVPB SCH ×2 (08:39→17:57)
[2022-07-09] MEDS: MethylPREDNISolone 40 MG/ML VIAL IVP SCH ×2 (08:39→17:57)
[2022-07-09] MEDS: Chlorhexidine Rinse 15 ML MOUTHWASH MM SCH ×2 (08:39→20:09)
[2022-07-09 11:07] LABS: ABG Base Excess 8 mEq/L (-2 to 3); ABG HCO3 37 mEq/L (21-27); ABG Oxygen Saturation 95 % (95-98); ABG PCO2 75 mmHg (35-45); ABG PH 7.31 pH Units (7.32-7.45); ABG PO2 86 mmHg (85-104); ABG TCO2 40 mEq/L (20-26)
[2022-07-09] MEDS: SODIUM CHLORIDE 0.9% IVPB SCH (12:09)
[2022-07-09] MEDS: DAPTOMYCIN IVPB SCH (12:09)
[2022-07-09 16:16] LABS: Blood Urea Nitrogen 19 mg/dL (8-23); Calcium 8.6 mg/dL (8.6-10.3); Carbon Dioxide 35 mEq/L (23-29); Chloride 101 mEq/L (98-107); Glucose 150 mg/dL (70-105); Magnesium 2.2 mg/dL (1.6-2.6); Osmolality,Calculated 291 (280-300); Phosphorous 2.6 mg/dL (2.7-4.5); Potassium 4.7 mEq/L (3.5-5.1); Sodium 138 mEq/L (136-145)
[2022-07-09 16:24] LABS: BUN/Creatinine Ratio 30 (6-26)
[2022-07-09] MEDS: FentaNYL (PF) 1,000 MCG/100 ML IV.SOLN IVC SCH (17:55)
[2022-07-09] MEDS: Acetaminophen 325 MG TABLET PO PRN (21:15)
[2022-07-09] MEDS: Potassium Phosphate 44 MEQ in 0.9 % Sodium Chloride 250 ML IVPB PRN (21:19)
[2022-07-10] MEDS: Ceftaroline Fosamil Acetate 600 MG in 0.9 % Sodium Chloride 50 ML IVPB SCH ×4 (00:19→23:16)
[2022-07-10] MEDS: Artificial Tears SOLN 15 ML BOTTLE BOTH EYES SCH ×3 (00:19→07:32)
[2022-07-10] MEDS: MethylPREDNISolone 40 MG/ML VIAL IVP SCH ×3 (00:19→17:19)
[2022-07-10] MEDS: Ipratropium/Albuterol Neb 3 ML IH SCH ×4 (04:01→21:09)
[2022-07-10 04:21] LABS: VBG Ionized Calcium 1.16 mmol/L (1.15-1.35)
[2022-07-10 04:29] LABS: Basophils % 0.1 %; Hematocrit 32.2 % (35.3-44.9); Hemoglobin 9.7 g/dL (11.5-15.4); Immature Granulocytes % 0.9 % (0-4); Lymphocytes # 0.2 K/mcL (0.6-4.6); Lymphocytes % 1.5 %; Mean Corpuscular HGB Conc 30.1 g/dL (31.6-35.5); Mean Corpuscular Hemoglobin 28.2 pg (28.0-33.3); Mean Corpuscular Volume 93.6 fL (83.0-100.0); Monocytes # 0.5 K/mcL (0.0-1.3); Neutrophils # 15.4 K/mcL (1.6-8.9); Platelet Count 188 K/mcL (140-400); Red Blood Count 3.44 M/mcL (3.82-4.97); Red Cell Distribution Width 15.4 % (11.5-14.5); Segmented Neutrophils % 94.5 %; White Blood Count 16.3 K/mcL (4.3-11.1)
[2022-07-10 04:32] LABS: INR 1.2; Prothrombin Time 13.5 Seconds (9.4-12.1)
[2022-07-10 04:41] LABS: BUN/Creatinine Ratio 24 (6-26); Blood Urea Nitrogen 15 mg/dL (8-23); Calcium 8.2 mg/dL (8.6-10.3); Carbon Dioxide 35 mEq/L (23-29); Chloride 100 mEq/L (98-107); Glucose 239 mg/dL (70-105); Magnesium 2.1 mg/dL (1.6-2.6); Osmolality,Calculated 291 (280-300); Phosphorous 3.6 mg/dL (2.7-4.5); Potassium 4.7 mEq/L (3.5-5.1); Sodium 136 mEq/L (136-145)
[2022-07-10] MEDS: *HR* Enoxaparin 40 MG/0.4 ML SYRINGE SQ SCH (05:36)
[2022-07-10] MEDS: Pantoprazole 40 MG VIAL IVP SCH (07:32)
[2022-07-10] MEDS: Norepinephrine 4 MG/254 ML IV.SOLN IVC SCH (07:34)
[2022-07-10] MEDS: Chlorhexidine Rinse 15 ML MOUTHWASH MM SCH ×2 (07:34→20:06)
[2022-07-10] MEDS: SODIUM CHLORIDE 0.9% IVPB SCH (11:27)
[2022-07-10] MEDS: DAPTOMYCIN IVPB SCH (11:27)
[2022-07-10] MEDS: Acetaminophen 325 MG TABLET PO PRN (20:05)
[2022-07-11 00:40] LABS: Basophils # 0.1 K/mcL (0.0-0.2); Basophils % 0.2 %; Hematocrit 35.3 % (35.3-44.9); Hemoglobin 10.7 g/dL (11.5-15.4); Immature Granulocytes % 1.4 % (0-4); Lymphocytes # 0.4 K/mcL (0.6-4.6); Lymphocytes % 1.5 %; Mean Corpuscular HGB Conc 30.3 g/dL (31.6-35.5); Mean Corpuscular Hemoglobin 28.1 pg (28.0-33.3); Mean Corpuscular Volume 92.7 fL (83.0-100.0); Mean Platelet Volume 11.5 fL (9.4-12.4); Monocytes % 4.1 %; Neutrophils # 22.3 K/mcL (1.6-8.9); Platelet Count 214 K/mcL (140-400); Red Blood Count 3.81 M/mcL (3.82-4.97); Red Cell Distribution Width 15.7 % (11.5-14.5); Segmented Neutrophils % 92.8 %
[2022-07-11 00:46] LABS: VBG Ionized Calcium 1.16 mmol/L (1.15-1.35)
[2022-07-11 01:04] LABS: Alanine Aminotransferase 16 Units/L (7-52); Albumin 3.2 g/dL (3.5-5.7); Albumin/Globulin Ratio 1.3 (1.1-2.2); Alkaline Phosphatase 46 Units/L (34-104); Aspartate Amino Transferase 11 Units/L (13-39); BUN/Creatinine Ratio 21 (6-26); Bilirubin,Total 0.3 mg/dL (0.3-1.0); Blood Urea Nitrogen 14 mg/dL (8-23); Calcium 8.6 mg/dL (8.6-10.3); Carbon Dioxide 36 mEq/L (23-29); Chloride 102 mEq/L (98-107); Globulin 2.5 g/dL (2.4-3.5); Glucose 131 mg/dL (70-105); Osmolality,Calculated 292 (280-300); Phosphorous 2.3 mg/dL (2.7-4.5); Sodium 140 mEq/L (136-145); Total Protein 5.7 g/dL (6.4-8.9)
[2022-07-11 02:28] LABS: Hypochromasia Present (Not Present); Platelet Estimate Normal (Normal)
[2022-07-11] MEDS: Ipratropium/Albuterol Neb 3 ML IH SCH ×4 (04:31→21:36)
[2022-07-11] MEDS: MethylPREDNISolone 40 MG/ML VIAL IVP SCH (05:13)
[2022-07-11] MEDS: *HR* Enoxaparin 40 MG/0.4 ML SYRINGE SQ SCH (05:13)
[2022-07-11] MEDS: Pantoprazole 40 MG VIAL IVP SCH (08:38)
[2022-07-11] MEDS: Ceftaroline Fosamil Acetate 600 MG in 0.9 % Sodium Chloride 50 ML IVPB SCH ×2 (08:38→16:57)
[2022-07-11] MEDS: Chlorhexidine Rinse 15 ML MOUTHWASH MM SCH (08:39)
[2022-07-11] MEDS: SODIUM CHLORIDE 0.9% IVPB SCH (13:39)
[2022-07-11] MEDS: DAPTOMYCIN IVPB SCH (13:39)
[2022-07-11] MEDS: Melatonin 3 MG TABLET PO SCH (20:20)
[2022-07-12] MEDS: Ceftaroline Fosamil Acetate 600 MG in 0.9 % Sodium Chloride 50 ML IVPB SCH ×4 (01:03→22:59)
[2022-07-12 02:59] LABS: Hematocrit 36.4 % (35.3-44.9); Hemoglobin 10.9 g/dL (11.5-15.4); Mean Corpuscular HGB Conc 29.9 g/dL (31.6-35.5); Mean Corpuscular Hemoglobin 27.9 pg (28.0-33.3); Mean Corpuscular Volume 93.1 fL (83.0-100.0); Mean Platelet Volume 11.5 fL (9.4-12.4); Platelet Count 180 K/mcL (140-400); Red Blood Count 3.91 M/mcL (3.82-4.97); Red Cell Distribution Width 15.8 % (11.5-14.5); White Blood Count 15.5 K/mcL (4.3-11.1)
[2022-07-12 03:16] LABS: BUN/Creatinine Ratio 20 (6-26); Blood Urea Nitrogen 12 mg/dL (8-23); Calcium 8.5 mg/dL (8.6-10.3); Carbon Dioxide 37 mEq/L (23-29); Chloride 102 mEq/L (98-107); Creatine Kinase 81 Units/L (30-223); Glucose 84 mg/dL (70-105); Magnesium 1.9 mg/dL (1.6-2.6); Osmolality,Calculated 295 (280-300); Phosphorous 2.5 mg/dL (2.7-4.5); Potassium 3.3 mEq/L (3.5-5.1); Sodium 143 mEq/L (136-145)
[2022-07-12] MEDS: Ipratropium/Albuterol Neb 3 ML IH SCH ×4 (03:49→21:07)
[2022-07-12] MEDS: *HR* Enoxaparin 40 MG/0.4 ML SYRINGE SQ SCH (05:19)
[2022-07-12] MEDS: predniSONE 20 MG TABLET PO SCH (07:45)
[2022-07-12] MEDS: ARIPiprazole 5 MG TABLET PO SCH (07:45)
[2022-07-12] MEDS: DAPTOMYCIN IVPB SCH (10:59)
[2022-07-12] MEDS: SODIUM CHLORIDE 0.9% IVPB SCH (10:59)
[2022-07-12] MEDS: Melatonin 3 MG TABLET PO SCH (20:26)
[2022-07-13] MEDS: Ipratropium/Albuterol Neb 3 ML IH SCH ×4 (03:57→22:01)
[2022-07-13 04:16] LABS: Hematocrit 35.8 % (35.3-44.9); Hemoglobin 10.7 g/dL (11.5-15.4); Mean Corpuscular HGB Conc 29.9 g/dL (31.6-35.5); Mean Corpuscular Hemoglobin 27.4 pg (28.0-33.3); Mean Corpuscular Volume 91.8 fL (83.0-100.0); Mean Platelet Volume 11.5 fL (9.4-12.4); Platelet Count 171 K/mcL (140-400); Red Cell Distribution Width 16.1 % (11.5-14.5); White Blood Count 11.4 K/mcL (4.3-11.1)
[2022-07-13 04:35] LABS: BUN/Creatinine Ratio 15 (6-26); Blood Urea Nitrogen 9 mg/dL (8-23); Calcium 8.5 mg/dL (8.6-10.3); Carbon Dioxide 39 mEq/L (23-29); Chloride 101 mEq/L (98-107); Glucose 83 mg/dL (70-105); Magnesium 1.9 mg/dL (1.6-2.6); Osmolality,Calculated 292 (280-300); Potassium 3.6 mEq/L (3.5-5.1); Sodium 142 mEq/L (136-145)
[2022-07-13] MEDS: *HR* Enoxaparin 40 MG/0.4 ML SYRINGE SQ SCH (05:25)
[2022-07-13] MEDS: ARIPiprazole 5 MG TABLET PO SCH (07:58)
[2022-07-13] MEDS: Ceftaroline Fosamil Acetate 600 MG in 0.9 % Sodium Chloride 50 ML IVPB SCH ×2 (07:58→16:42)
[2022-07-13] MEDS: predniSONE 20 MG TABLET PO SCH (07:58)
[2022-07-13] MEDS: DAPTOMYCIN IVPB SCH (11:40)
[2022-07-13] MEDS: SODIUM CHLORIDE 0.9% IVPB SCH (11:40)
[2022-07-13] MEDS: Melatonin 3 MG TABLET PO SCH (20:20)
[2022-07-14] MEDS: Ceftaroline Fosamil Acetate 600 MG in 0.9 % Sodium Chloride 50 ML IVPB SCH ×4 (00:54→23:16)
[2022-07-14 02:51] LABS: Hematocrit 35.7 % (35.3-44.9); Hemoglobin 10.7 g/dL (11.5-15.4); Mean Corpuscular Hemoglobin 27.9 pg (28.0-33.3); Mean Platelet Volume 11.9 fL (9.4-12.4); Platelet Count 182 K/mcL (140-400); Red Blood Count 3.84 M/mcL (3.82-4.97); Red Cell Distribution Width 16.1 % (11.5-14.5); White Blood Count 11.6 K/mcL (4.3-11.1)
[2022-07-14 03:10] LABS: BUN/Creatinine Ratio 18 (6-26); Blood Urea Nitrogen 11 mg/dL (8-23); Calcium 8.1 mg/dL (8.6-10.3); Carbon Dioxide 36 mEq/L (23-29); Chloride 102 mEq/L (98-107); Glucose 112 mg/dL (70-105); Magnesium 1.9 mg/dL (1.6-2.6); Osmolality,Calculated 290 (280-300); Potassium 3.6 mEq/L (3.5-5.1); Sodium 140 mEq/L (136-145)
[2022-07-14] MEDS: Ipratropium/Albuterol Neb 3 ML IH SCH ×4 (04:24→21:50)
[2022-07-14] MEDS: *HR* Enoxaparin 40 MG/0.4 ML SYRINGE SQ SCH (06:00)
[2022-07-14] MEDS: ARIPiprazole 5 MG TABLET PO SCH (08:27)
[2022-07-14] MEDS: predniSONE 20 MG TABLET PO SCH (08:28)
[2022-07-14] MEDS: SODIUM CHLORIDE 0.9% IVPB SCH (10:43)
[2022-07-14] MEDS: DAPTOMYCIN IVPB SCH (10:43)
[2022-07-14] MEDS: Melatonin 3 MG TABLET PO SCH (20:24)
[2022-07-15] MEDS: Ipratropium/Albuterol Neb 3 ML IH SCH ×4 (04:00→21:03)
[2022-07-15] MEDS: *HR* Enoxaparin 40 MG/0.4 ML SYRINGE SQ SCH (05:10)
[2022-07-15] MEDS: predniSONE 20 MG TABLET PO SCH (07:35)
[2022-07-15] MEDS: Ceftaroline Fosamil Acetate 600 MG in 0.9 % Sodium Chloride 50 ML IVPB SCH ×3 (07:35→23:14)
[2022-07-15] MEDS: ARIPiprazole 5 MG TABLET PO SCH (07:35)
[2022-07-15] MEDS: DAPTOMYCIN IVPB SCH (11:40)
[2022-07-15] MEDS: SODIUM CHLORIDE 0.9% IVPB SCH (11:40)
[2022-07-15] MEDS: Furosemide 40 MG/4 ML VIAL IVP SCH (18:20)
[2022-07-15] MEDS: Melatonin 3 MG TABLET PO SCH (20:39)
[2022-07-16 03:17] LABS: Hematocrit 33.2 % (35.3-44.9); Mean Corpuscular HGB Conc 30.1 g/dL (31.6-35.5); Mean Corpuscular Hemoglobin 28.2 pg (28.0-33.3); Mean Corpuscular Volume 93.8 fL (83.0-100.0); Mean Platelet Volume 11.2 fL (9.4-12.4); Platelet Count 150 K/mcL (140-400); Red Blood Count 3.54 M/mcL (3.82-4.97); Red Cell Distribution Width 16.1 % (11.5-14.5); White Blood Count 12.6 K/mcL (4.3-11.1)
[2022-07-16 03:33] LABS: BUN/Creatinine Ratio 18 (6-26); Blood Urea Nitrogen 11 mg/dL (8-23); Calcium 8.4 mg/dL (8.6-10.3); Carbon Dioxide 39 mEq/L (23-29); Chloride 99 mEq/L (98-107); Glucose 111 mg/dL (70-105); Magnesium 1.8 mg/dL (1.6-2.6); Osmolality,Calculated 292 (280-300); Potassium 2.9 mEq/L (3.5-5.1); Sodium 141 mEq/L (136-145)
[2022-07-16] MEDS: Ipratropium/Albuterol Neb 3 ML IH SCH ×4 (04:31→21:42)
[2022-07-16] MEDS: *HR* Enoxaparin 40 MG/0.4 ML SYRINGE SQ SCH (05:44)
[2022-07-16] MEDS: Ceftaroline Fosamil Acetate 600 MG in 0.9 % Sodium Chloride 50 ML IVPB SCH ×3 (07:43→23:23)
[2022-07-16] MEDS: Furosemide 40 MG/4 ML VIAL IVP SCH (07:43)
[2022-07-16] MEDS: ARIPiprazole 5 MG TABLET PO SCH (07:44)
[2022-07-16] MEDS: predniSONE 20 MG TABLET PO SCH (07:48)
[2022-07-16] MEDS: SODIUM CHLORIDE 0.9% IVPB SCH (10:24)
[2022-07-16] MEDS: DAPTOMYCIN IVPB SCH (10:24)
[2022-07-16 15:20] LABS: Adenovirus F 40/41 PCR Not detected (Not detect); Astrovirus PCR Not detected (Not detect); C.difficile Toxin A/B Gene PCR Not detected (Not detect); Campylobacter by PCR Not detected (Not detect); Cryptosporidium by PCR Not detected (Not detect); Cyclospora cayetanensis PCR Not detected (Not detect); E. coli O157 by PCR Not detected (Not detect); Entamoeba histolytica PCR Not detected (Not detect); Enteroaggregative E.coli(EAEC) Not detected (Not detect); Enteropathogenic E.coli(EPEC) Not detected (Not detect); Enterotoxigenic E.coli (ETEC) Not detected (Not detect); Giardia lamblia PCR Not detected (Not detect); Norovirus GI/GII PCR Not detected (Not detect); Plesiomonas shigelloides PCR Not detected (Not detect); Rotavirus A PCR Not detected (Not detect); Salmonella PCR Not detected (Not detect); Sapovirus PCR Not detected (Not detect); Shig/EnteroinvasiveE coli EIEC Not detected (Not detect); Shigalike tox-prod E coli STEC Not detected (Not detect); Vibrio PCR Not detected (Not detect); Vibrio cholerae PCR Not detected (Not detect); Yersinia enterocolitica PCR Not detected (Not detect)
[2022-07-16] MEDS: Melatonin 3 MG TABLET PO SCH (20:57)
[2022-07-17 03:08] LABS: Hematocrit 34.8 % (35.3-44.9); Hemoglobin 10.5 g/dL (11.5-15.4); Mean Corpuscular HGB Conc 30.2 g/dL (31.6-35.5); Mean Corpuscular Hemoglobin 28.1 pg (28.0-33.3); Platelet Count 143 K/mcL (140-400); Red Blood Count 3.74 M/mcL (3.82-4.97); Red Cell Distribution Width 15.9 % (11.5-14.5); White Blood Count 12.9 K/mcL (4.3-11.1)
[2022-07-17 03:35] LABS: BUN/Creatinine Ratio 27 (6-26); Blood Urea Nitrogen 13 mg/dL (8-23); Calcium 8.9 mg/dL (8.6-10.3); Carbon Dioxide 42 mEq/L (23-29); Chloride 98 mEq/L (98-107); Glucose 101 mg/dL (70-105); Osmolality,Calculated 294 (280-300); Potassium 3.6 mEq/L (3.5-5.1); Sodium 142 mEq/L (136-145)
[2022-07-17] MEDS: Ipratropium/Albuterol Neb 3 ML IH SCH ×4 (03:58→22:36)
[2022-07-17] MEDS: *HR* Enoxaparin 40 MG/0.4 ML SYRINGE SQ SCH (05:42)
[2022-07-17] MEDS: Ceftaroline Fosamil Acetate 600 MG in 0.9 % Sodium Chloride 50 ML IVPB SCH ×2 (07:58→15:59)
[2022-07-17] MEDS: Furosemide 40 MG/4 ML VIAL IVP SCH (08:01)
[2022-07-17] MEDS: predniSONE 20 MG TABLET PO SCH (08:02)
[2022-07-17] MEDS: ARIPiprazole 5 MG TABLET PO SCH (08:02)
[2022-07-17] MEDS: DAPTOMYCIN IVPB SCH (11:47)
[2022-07-17] MEDS: SODIUM CHLORIDE 0.9% IVPB SCH (11:47)
[2022-07-17] MEDS ORDERED: Furosemide 40 MG/4 ML VIAL IVP ONE (16:09)
[2022-07-17 16:28] LABS: ABG Base Excess 11 mEq/L (-2 to 3); ABG HCO3 38 mEq/L (21-27); ABG Oxygen Saturation 90 % (95-98); ABG PCO2 60 mmHg (35-45); ABG PH 7.41 pH Units (7.32-7.45); ABG PO2 59 mmHg (85-104); ABG TCO2 40 mEq/L (20-26)
[2022-07-17] MEDS: levoFLOXacin 750 MG TABLET PO SCH (18:25)
[2022-07-17] MEDS: Melatonin 3 MG TABLET PO SCH (20:02)
[2022-07-18] MEDS: Ceftaroline Fosamil Acetate 600 MG in 0.9 % Sodium Chloride 50 ML IVPB SCH ×4 (00:10→23:44)
[2022-07-18] MEDS: Ipratropium/Albuterol Neb 3 ML IH SCH ×4 (04:05→22:53)
[2022-07-18] MEDS: *HR* Enoxaparin 40 MG/0.4 ML SYRINGE SQ SCH (05:52)
[2022-07-18] MEDS: Furosemide 40 MG/4 ML VIAL IVP SCH (08:29)
[2022-07-18 09:05] LABS: Hematocrit 36.8 % (35.3-44.9); Immature Platelets 7.3 % (1.1-6.1); Mean Corpuscular HGB Conc 29.9 g/dL (31.6-35.5); Mean Corpuscular Hemoglobin 27.8 pg (28.0-33.3); Mean Corpuscular Volume 93.2 fL (83.0-100.0); Red Blood Count 3.95 M/mcL (3.82-4.97); Red Cell Distribution Width 16.1 % (11.5-14.5); White Blood Count 15.7 K/mcL (4.3-11.1)
[2022-07-18 09:31] LABS: BUN/Creatinine Ratio 22 (6-26); Blood Urea Nitrogen 14 mg/dL (8-23); Carbon Dioxide 41 mEq/L (23-29); Chloride 94 mEq/L (98-107); Glucose 117 mg/dL (70-105); Osmolality,Calculated 292 (280-300); Potassium 3.2 mEq/L (3.5-5.1); Sodium 140 mEq/L (136-145)
[2022-07-18] MEDS: predniSONE 20 MG TABLET PO SCH (09:37)
[2022-07-18] MEDS: ARIPiprazole 5 MG TABLET PO SCH (09:37)
[2022-07-18] MEDS: levoFLOXacin 750 MG TABLET PO SCH (09:38)
[2022-07-18] MEDS: DAPTOMYCIN IVPB SCH (11:30)
[2022-07-18] MEDS: SODIUM CHLORIDE 0.9% IVPB SCH (11:30)
[2022-07-18 19:02] LABS: Adenovirus Not Detected (Not Detect); Bordetella Pertussis Not Detected (Not Detect); Chlamydophila pneumoniae Not Detected (Not Detect); Coronavirus 229E Not Detected (Not Detect); Coronavirus HKU1 Not Detected (Not Detect); Coronavirus NL63 Not Detected (Not Detect); Coronavirus OC43 Not Detected (Not Detect); Human Metapneumovirus Not Detected (Not Detect); Human Rhinovirus/Enterovirus Not Detected (Not Detect); Influenza A Subtype 2009 H1 Not Detected (Not Detect); Influenza B Not Detected (Not Detect); Mycoplasma pneumoniae Not Detected (Not Detect); Parainfluenza Virus 1 Not Detected (Not Detect); Parainfluenza Virus 2 Not Detected (Not Detect); Parainfluenza Virus 3 Not Detected (Not Detect); Parainfluenza Virus 4 Not Detected (Not Detect); Respiratory Syncytial Virus Not Detected (Not Detect); SARS-CoV-2 Not Detected (Not Detect)
[2022-07-18] MEDS: Melatonin 3 MG TABLET PO SCH (20:02)
[2022-07-19 02:44] LABS: Basophils % 0.3 %; Eosinophils # 0.1 K/mcL (0.0-0.6); Eosinophils % 0.9 %; Hematocrit 33.9 % (35.3-44.9); Hemoglobin 10.5 g/dL (11.5-15.4); Immature Granulocytes % 0.9 % (0-4); Lymphocytes # 0.8 K/mcL (0.6-4.6); Lymphocytes % 5.9 %; Mean Corpuscular Hemoglobin 28.5 pg (28.0-33.3); Mean Corpuscular Volume 91.9 fL (83.0-100.0); Monocytes # 0.9 K/mcL (0.0-1.3); Monocytes % 6.4 %; Platelet Count 121 K/mcL (140-400); Red Blood Count 3.69 M/mcL (3.82-4.97); Segmented Neutrophils % 85.6 %
[2022-07-19 02:46] LABS: VBG HCO3 39 mEq/L (21-27); VBG PCO2 66 mmHg (41-51); VBG PH 7.38 pH Units (7.32-7.42); VBG PO2 151 mmHg (25-50)
[2022-07-19 03:00] LABS: BUN/Creatinine Ratio 27 (6-26); Blood Urea Nitrogen 14 mg/dL (8-23); Calcium 9.1 mg/dL (8.6-10.3); Carbon Dioxide 41 mEq/L (23-29); Chloride 96 mEq/L (98-107); Glucose 108 mg/dL (70-105); Osmolality,Calculated 289 (280-300); Potassium 3.6 mEq/L (3.5-5.1); Sodium 139 mEq/L (136-145)
[2022-07-19] MEDS: Ipratropium/Albuterol Neb 3 ML IH SCH ×2 (04:22→09:35)
[2022-07-19] MEDS: *HR* Enoxaparin 40 MG/0.4 ML SYRINGE SQ SCH (05:24)
[2022-07-19 07:47] VITALS: BP 108/66
[2022-07-19] MEDS: ARIPiprazole 5 MG TABLET PO SCH (07:47)
[2022-07-19] MEDS: Ceftaroline Fosamil Acetate 600 MG in 0.9 % Sodium Chloride 50 ML IVPB SCH (07:47)
[2022-07-19] MEDS: predniSONE 20 MG TABLET PO SCH (07:47)
[2022-07-19] MEDS: Furosemide 40 MG/4 ML VIAL IVP SCH (07:47)
[2022-07-19] MEDS: levoFLOXacin 750 MG TABLET PO SCH (07:48)
[2022-07-19] MEDS: SODIUM CHLORIDE 0.9% IVPB SCH (10:29)
[2022-07-19] MEDS: DAPTOMYCIN IVPB SCH (10:29)
[2022-07-19 10:35] VITALS: PULSE 85; TEMP 97.5; O2SAT 89
== END 2022-07-19 13:33 | DRG 871 ==
LOC: EMEROOARM 14:42 → ICNU 14:42 → SUATTDRO 19:59 → ICNU 21:13 → 2NENU 07-10 14:43
PROVIDERS: ADMIT Internal Medicine; ATTEND Student in an Organized Health Care Education/Training Program